=== PATIENT | female | born 1990 | race Hispanic/Latino ===

== ENCOUNTER 2016-08-23 12:07 | Emergency (ER) | payer OTHER ==
[~2016-08-23] VITALS: Ht 160 cm; Wt 79.8 kg
[~2016-08-23 12:07] MED LIST: COLA100C3 PO; MOTR200T44 PO; NUPE1OIN2 TOP; STUACAP PO; TYLE325T5 PO
[2016-08-23] MEDS ORDERED: PRENTAB29 PO (12:28)
[2016-08-23] MEDS ORDERED: NS 1,000 ML IV ONE (12:45)
[2016-08-23] MEDS ORDERED: ONDANSETRON 4MG/2ML VIAL (J2405) IV ONE (12:45)
[2016-08-23] MEDS ORDERED: KETOROLAC 30 MG/ML VIAL (J1885) IV ONE (12:45)
[2016-08-23 13:29] LABS: BASO % 0.2 % (0.0-1.0); EOS # 0.1 K/mm3 (0.0-0.50); EOS % 0.8 % (0.0-3.0); LARGE UNSTAINED CELL # 0.1 K/mm3 (0.0-0.4); LARGE UNSTAINED CELL % 0.7 % (0.0-4.0); LYMPH # 0.7 K/mm3 (1.5-6.5); LYMPH % 6.9 % (24.0-44.0); MEAN CORPUSCULAR HEMOGLOBIN 29.4 pg (27.0-33.0); MEAN CORPUSCULAR HGB CONC 33.2 g/dl (32.0-36.5); MEAN CORPUSCULAR VOLUME 88.6 fl (80.0-96.0); MONO # 0.6 K/mm3 (0.0-0.8); MONO % 5.5 % (0.0-5.0); NEUTROPHILS # 8.5 K/mm3 (1.8-7.7); NEUTROPHILS % 85.9 % (36.0-66.0); PLATELET COUNT, AUTOMATED 150 k/mm3 (150-450); RED CELL DISTRIBUTION WIDTH 13.5 % (11.5-14.5); WHITE BLOOD COUNT 9.9 K/mm3 (4.0-10.0)
[2016-08-23 13:32] LABS: CONTROL LINE HCG INT CTR LINE PRESENT
[2016-08-23 13:35] LABS: INR 0.89
[2016-08-23 13:45] LABS: ALBUMIN 4.1 GM/DL (3.2-5.2); ALBUMIN/GLOBULIN RATIO 1.11 (1.00-1.93); ALKALINE PHOSPHATASE 107 U/L (45-117); ALT/SGPT 66 U/L (12-78); AMYLASE 54 U/L (25-115); ANION GAP 5 MEQ/L (8-16); AST/SGOT 29 U/L (15-37); BILIRUBIN,DIRECT 0.3 MG/DL (0.0-0.2); BILIRUBIN,TOTAL 1.2 MG/DL (0.2-1.0); BLOOD UREA NITROGEN 16 MG/DL (7-18); CALCIUM LEVEL 8.6 MG/DL (8.5-10.1); CARBON DIOXIDE LEVEL 28 MEQ/L (21-32); CHLORIDE LEVEL 109 MEQ/L (98-107); GLOMERULAR FILTRATION RATE > 60.0 (>60); GLUCOSE, FASTING 105 MG/DL (70-105); POTASSIUM SERUM 4.3 MEQ/L (3.5-5.1); SODIUM LEVEL 142 MEQ/L (136-145); TOTAL PROTEIN 7.8 GM/DL (6.4-8.2)
[2016-08-23] MEDS ORDERED: PEPC1TAB4 PO (14:09)
--- NOTE | 2016-08-23 14:16 | REP ---
RIGHT UPPER QUADRANT ULTRASOUND: Real-time sonographic evaluation of the right upper quadrant performed. There is a 7 mm polyp or nonshadowing stone in the gallbladder. There is no gallbladder wall thickening or pericholecystic fluid. There is no intrahepatic or extrahepatic biliary dilatation, common bile duct measuring 3 mm in diameter. Liver demonstrates mildly increased echotexture which may represent fatty infiltration. Pancreas appears unremarkable. Right kidney demonstrates no hydronephrosis or nephrolithiasis with normal size at 11.9 cm in length. IMPRESSION: There appears to be a 7 mm polyp or nonshadowing stone in the gallbladder without gallbladder wall thickening, pericholecystic fluid or biliary dilatation. Signed by Triston Valle MD 08/23/2016 07:49 P
--- NOTE | 2016-08-24 06:47 | REP ---
ABDOMINAL SERIES: Supine and erect views of the abdomen performed. There is no free air. There is no evidence of small bowel obstruction. IUD is seen centrally in the pelvis. The visualized osseous structures appear unremarkable. An accompanying view of the chest demonstrates no acute infiltrate. Cardiomediastinal silhouette is unremarkable. IMPRESSION: Essentially negative abdominal series. IUD is seen in the pelvis centrally. Signed by Triston Valle MD 08/24/2016 07:49 P
--- NOTE | 2016-08-25 06:33 | ED PDOC ---
Post-Departure Follow-Up no pcp listed. certified letter sent to pt re formal read of epi us - needs fu for polyp.Orion Navarro MD August 25, 2016 06:33
== END 2016-08-23 14:28 | disposition home or self-care (01) ==
LOC: M ED 12:51
DX: K29.70 Gastritis, unspecified, without bleeding (principal); K82.4 Cholesterolosis of gallbladder; K25.9 Gastric ulcer, unspecified as acute or chronic, without hemorrhage or perforation; Z79.899 Other long term (current) drug therapy; Z79.3 Long term (current) use of hormonal contraceptives
CPT/HCPCS: 74022; 76705; 80048; 80076; 81001; 82150; 83690; 84703; 85025; 85610; 87086; 96374; 96375; 99282; J1885; J2405